=== PATIENT | female | born 1960 | race Caucasian/White ===

== ENCOUNTER 2017-05-12 08:43 | Observation (INO) | payer OTHER ==
[2017-05-12] MEDS: CEFAZOLIN 2 GM/50 ML (PMX) 50 ML IVPB (08:30)
[2017-05-12] MEDS: SOD CHLORIDE 0.9% 1,000 ML IV (08:30)
[2017-05-12 10:02] LABS: ADD MAN DIFF? NO
[2017-05-12 10:11] LABS: BASOPHIL # 0.1 10^3/ul (0.0-0.1); EOSINOPHILS # 0.3 10^3/ul (0.0-0.5); EOSINOPHILS % 3.7 % (0.0-7.0); HEMATOCRIT 38.1 % (37.0-47.0); HEMOGLOBIN 12.7 g/dl (12.0-16.0); LYMPHOCYTES # 2.9 10^3/ul (0.8-2.9); LYMPHOCYTES % 36.8 % (15.0-51.0); MEAN CORPUSCULAR HEMOGLOBIN 29.3 pg (29.0-33.0); MEAN CORPUSCULAR HGB CONC 33.3 g/dl (32.0-37.0); MEAN PLATELET VOLUME 10.8 fl (7.4-10.4); MONOCYTE # 0.4 10^3/ul (0.3-0.9); MONOCYTES % 4.5 % (0.0-11.0); NEUTROPHIL # 4.3 10^3/ul (1.6-7.5); NEUTROPHILS % 53.7 % (39.0-77.0); PLATELET COUNT 282 10^3/UL (140-415); RED BLOOD COUNT 4.33 10^6/ul (4.20-5.40); RED CELL DISTRIBUTION WIDTH 12.6 % (11.5-14.5)
[2017-05-12 10:11] LABS: WHITE BLOOD COUNT 7.9 10^3/ul (4.8-10.8)
[2017-05-12 10:25] LABS: ALANINE AMINOTRANSFERASE 39 IU/L (13-69); ALBUMIN 4.5 g/dl (3.3-4.9); ALBUMIN/GLOBULIN RATIO 1.25; ALKALINE PHOSPHATASE 119 IU/L (42-121); ANION GAP 16 (8-16); ASPARTATE AMINO TRANSFERASE 29 IU/L (15-46); BILIRUBIN,INDIRECT 0.1 mg/dl (0-1.1); BILIRUBIN,TOTAL 0.1 mg/dl (0.2-1.3); CARBON DIOXIDE 23 mmol/L (21-31); CHLORIDE 108 mmol/L (97-110); GLUCOSE 117 mg/dl (70-220); TOTAL PROTEIN 8.1 g/dl (6.1-8.1)
[2017-05-12 10:30] LABS: INR 0.96; PARTIAL THROMBOPLASTIN TIME 30.7 Sec (25.0-35.0); PROTIME 12.9 Sec (11.9-14.9)
[2017-05-12 10:31] LABS: BLOOD UREA NITROGEN 12 mg/dl (7-20); CALCIUM 9.4 mg/dl (8.4-10.2); CREATININE 0.67 mg/dl (0.44-1.00); SODIUM 143 mmol/L (135-144)
[2017-05-12] MEDS ORDERED: MIDAZOLAM 1 MG/ML 2 ML INJ ×2 (10:59→11:00)
[2017-05-12] MEDS ORDERED: CEFAZOLIN 1 GM INJ (12:15)
[2017-05-12] MEDS ORDERED: GLYCOPYRROLATE 0.4 MG INJ (12:15)
[2017-05-12] MEDS ORDERED: LIDOCAINE 2% (SDV) 5 ML INJ (12:15)
[2017-05-12] MEDS ORDERED: NEOSTIGMINE 3 MG/3 ML SYRINGE (12:15)
[2017-05-12] MEDS ORDERED: ROCURONIUM 50 MG INJ (12:15)
[2017-05-12] MEDS ORDERED: PROPOFOL 20 ML (12:15)
[2017-05-12] MEDS ORDERED: ONDANSETRON 4 MG INJ (12:16)
[2017-05-12] MEDS: D5W-0.45 NACL + KCL 20 MEQ 1,000 ML IV ×3 (12:16→21:01)
[2017-05-12] MEDS ORDERED: HYDROCODONE/APAP (5/325) TAB PO (12:30)
[2017-05-12] MEDS: ONDANSETRON 4 MG INJ IV ×3 (12:56→23:06)
[2017-05-12] MEDS: FENTAnyl 50 MCG/ML VIAL IV (12:56)
[2017-05-12] MEDS ORDERED: MEPERIDINE 25 MG INJ IV (13:00)
[2017-05-12] MEDS ORDERED: HYDROmorphONE (0.2 MG/ML) 10ML SYG IV ×2 (13:00)
[2017-05-12] MEDS ORDERED: DIPHENHYDRAMINE 50 MG INJ IV (13:00)
[2017-05-12] MEDS: morphine 2 MG INJ IV ×4 (14:45→20:07)
[2017-05-12] MEDS: ATORVASTATIN 20 MG TAB PO (21:01)
[2017-05-13] MEDS: hydrALAzine 20 MG INJ IV (04:06)
[2017-05-13] MEDS: ACETAMINOPHEN 1000MG/100ML IV 100 ML IVPB ×2 (04:11→10:11)
[2017-05-13] MEDS: D5W-0.45 NACL + KCL 20 MEQ 1,000 ML IV ×4 (05:15→22:27)
[2017-05-13] MEDS: ONDANSETRON 4 MG INJ IV ×2 (05:19→10:06)
[2017-05-13 05:26] LABS: ADD MAN DIFF? NO
[2017-05-13 05:33] LABS: WHITE BLOOD COUNT 13.9 10^3/ul (4.8-10.8)
[2017-05-13 05:33] LABS: BASOPHILS % 0.3 % (0.0-2.0); EOSINOPHILS % 0.2 % (0.0-7.0); LYMPHOCYTES # 2.1 10^3/ul (0.8-2.9); LYMPHOCYTES % 15.3 % (15.0-51.0); MEAN CORPUSCULAR HEMOGLOBIN 29.9 pg (29.0-33.0); MEAN CORPUSCULAR HGB CONC 34.3 g/dl (32.0-37.0); MEAN CORPUSCULAR VOLUME 87.3 fl (82.0-101.0); MEAN PLATELET VOLUME 10.4 fl (7.4-10.4); MONOCYTE # 0.6 10^3/ul (0.3-0.9); MONOCYTES % 4.3 % (0.0-11.0); NEUTROPHILS % 79.4 % (39.0-77.0); PLATELET COUNT 258 10^3/UL (140-415); RED BLOOD COUNT 4.01 10^6/ul (4.20-5.40); RED CELL DISTRIBUTION WIDTH 12.6 % (11.5-14.5)
[2017-05-13 06:03] LABS: ANION GAP 16 (8-16); BLOOD UREA NITROGEN 7 mg/dl (7-20); CALCIUM 9.2 mg/dl (8.4-10.2); CARBON DIOXIDE 22 mmol/L (21-31); CHLORIDE 101 mmol/L (97-110); CREATININE 0.59 mg/dl (0.44-1.00); GLUCOSE 152 mg/dl (70-220); POTASSIUM 3.9 mmol/L (3.5-5.1); SODIUM 135 mmol/L (135-144)
[2017-05-13] MEDS: LOSARTAN 50 MG TAB PO (08:14)
[2017-05-13] MEDS: ATORVASTATIN 20 MG TAB PO (20:24)
[2017-05-14 05:51] LABS: ADD MAN DIFF? NO
[2017-05-14 06:02] LABS: WHITE BLOOD COUNT 12.6 10^3/ul (4.8-10.8)
[2017-05-14 06:02] LABS: BASOPHIL # 0.1 10^3/ul (0.0-0.1); BASOPHILS % 0.5 % (0.0-2.0); EOSINOPHILS # 0.1 10^3/ul (0.0-0.5); HEMATOCRIT 35.8 % (37.0-47.0); LYMPHOCYTES # 3.1 10^3/ul (0.8-2.9); LYMPHOCYTES % 24.8 % (15.0-51.0); MEAN CORPUSCULAR HEMOGLOBIN 29.6 pg (29.0-33.0); MEAN CORPUSCULAR HGB CONC 33.5 g/dl (32.0-37.0); MEAN CORPUSCULAR VOLUME 88.2 fl (82.0-101.0); MEAN PLATELET VOLUME 10.7 fl (7.4-10.4); MONOCYTE # 0.9 10^3/ul (0.3-0.9); MONOCYTES % 6.8 % (0.0-11.0); NEUTROPHIL # 8.4 10^3/ul (1.6-7.5); NEUTROPHILS % 66.6 % (39.0-77.0); PLATELET COUNT 260 10^3/UL (140-415); RED BLOOD COUNT 4.06 10^6/ul (4.20-5.40); RED CELL DISTRIBUTION WIDTH 12.9 % (11.5-14.5)
[2017-05-14 06:14] LABS: ALANINE AMINOTRANSFERASE 51 IU/L (13-69); ALBUMIN 3.9 g/dl (3.3-4.9); ALBUMIN/GLOBULIN RATIO 1.08; ALKALINE PHOSPHATASE 107 IU/L (42-121); ANION GAP 14 (8-16); ASPARTATE AMINO TRANSFERASE 41 IU/L (15-46); BILIRUBIN,INDIRECT 0.3 mg/dl (0-1.1); BILIRUBIN,TOTAL 0.3 mg/dl (0.2-1.3); BLOOD UREA NITROGEN 7 mg/dl (7-20); CALCIUM 9.1 mg/dl (8.4-10.2); CARBON DIOXIDE 22 mmol/L (21-31); CHLORIDE 109 mmol/L (97-110); CREATININE 0.66 mg/dl (0.44-1.00); GLUCOSE 134 mg/dl (70-220); SODIUM 141 mmol/L (135-144); TOTAL PROTEIN 7.5 g/dl (6.1-8.1)
[2017-05-14] MEDS: D5W-0.45 NACL + KCL 20 MEQ 1,000 ML IV ×2 (06:27→15:05)
[2017-05-14] MEDS: LOSARTAN 50 MG TAB PO (08:19)
[2017-05-14] MEDS: HYDROCODONE/APAP (5/325) TAB PO (17:40)
== END 2017-05-14 20:30 | disposition home or self-care (01) ==
LOC: SDS 08:43 → REC 12:16 → MS1 14:20
DX: K80.10 Calculus of gallbladder with chronic cholecystitis without obstruction (principal); I10 Essential (primary) hypertension; E78.5 Hyperlipidemia, unspecified; Z79.82 Long term (current) use of aspirin
CPT/HCPCS: 47562; 71045; 80048; 80053; 85025; 85610; 85730; 88304; 93005; 99217